=== PATIENT | female | born 1970 | race Caucasian/White ===

== ENCOUNTER 2017-05-03 05:11 | Inpatient (IN) | payer OTHER ==
[~2017-05-03] VITALS: Ht 167.6 cm; Wt 113.1 kg
[~2017-05-03 05:11] MED LIST: ASPI-183 PO; CELE200C PO; CHOL1TAB42 PO; CYMB60CA PO; FENO145T2 PO; FURO1TAB62 PO; HYZA50TA2 PO; LIPI20TA PO; LORA-474 PO; LYRI75CA PO; METF500T PO; OMEP20TA93 PO; OS-CTAB3 PO; SENN1TAB40 PO; VARE1 PO
[2017-05-03] MEDS ORDERED: ceFAZolin 2 GM PREMIX 50 ML IV SCH (05:45)
[2017-05-03] MEDS ORDERED: POVIDONE IODINE 5% (ANTISEPSIS KIT) 4 APPLICATIONS EACH NARE PRN (05:45)
[2017-05-03] MEDS ORDERED: ONDANSETRON HCL 4 MG/2 ML VIAL IV PUSH SCH (05:45)
[2017-05-03] MEDS ORDERED: metroNIDAZOLE 500 MG INJ 100 ML IV SCH (05:45)
[2017-05-03] MEDS ORDERED: METOPROLOL TARTRATE 25 MG TAB PO PRN (05:45)
[2017-05-03] MEDS ORDERED: LACTATED RINGER'S 1000 ML IV PRN (05:45)
[2017-05-03] MEDS ORDERED: APREPITANT 40 MG CAP PO SCH (05:45)
[2017-05-03] MEDS ORDERED: CHLORHEXIDINE GLUCONATE 2 % 1 PACK (2 CLOTHS) TOPICAL PRN (05:45)
[2017-05-03] MEDS ORDERED: SCOPOLAMINE 1.5 MG PATCH T-DERMAL SCH (05:45)
[2017-05-03] MEDS ORDERED: ACETAMINOPHEN 1000 MG/100 ML 0 ML IV ONE (06:35)
[2017-05-03] MEDS ORDERED: BUPIVACAINE/EPINEPHRINE 0.25% PF 30 ML VIAL ONE (06:54)
[2017-05-03] MEDS: ACETAMINOPHEN 1000 MG/100 ML 100 ML IV SCH ×3 (08:00→19:41)
[2017-05-03] MEDS ORDERED: METHYLENE BLUE 10 MG/ML VIAL OTHER ONE (09:46)
[2017-05-03] MEDS ORDERED: diphenhydrAMINE HCL 50 MG/ML VIAL IV PUSH PRN (10:30)
[2017-05-03] MEDS ORDERED: ENALAPRILAT 1.25 MG/ML VIAL IV PUSH PRN (10:30)
[2017-05-03] MEDS ORDERED: ACETAMINOPHEN 325MG/HYDROcodone 7.5MG/15ML UDC PO PRN ×2 (10:30)
[2017-05-03] MEDS ORDERED: Post-op Orders (for Pharmacy) MISC OTHER ONE (10:30)
[2017-05-03] MEDS ORDERED: NALOXONE HCL 0.4 MG/ML AMP IV PUSH PRN (10:30)
[2017-05-03] MEDS ORDERED: diphenhydrAMINE HCL ELIXIR 12.5 MG/5 ML CUP PO PRN (10:30)
[2017-05-03] MEDS ORDERED: SODIUM CHLORIDE 0.9% FLUSH 10 ML FLUSH IV FLUSH PRN (10:30)
[2017-05-03] MEDS ORDERED: DEXTROSE 50% IN WATER 50 ML VIAL(D50) IV PUSH PRN (10:30)
[2017-05-03] MEDS ORDERED: GLUCAGON 1 MG/ML VIAL OTHER PRN (10:30)
[2017-05-03] MEDS ORDERED: DO NOT ADM ANY ANTICOAGULANT DRUGS PRN (10:48)
[2017-05-03] MEDS ORDERED: *ONDANSETRON 4 MG VIAL PERIprocedural Use ONLY ONE (11:33)
[2017-05-03] MEDS: METOCLOPRAMIDE HCL 10 MG/2 ML VIAL IV PUSH SCH ×2 (11:35→18:08)
[2017-05-03] MEDS: 1/2 NS + KCL 20 MEQ INJ 1,000 ML IV SCH ×3 (11:40→19:41)
[2017-05-03] MEDS: RESP: ALBUTEROL 2.5 MG/3 ML NEB (SCH) INH ×2 (12:00→19:41)
[2017-05-03] MEDS ORDERED: SODIUM CHLORID 0.9% 500 ML INJ 500 ML IV ONE (12:00)
[2017-05-03] MEDS ORDERED: SODIUM CHLOR 0.9% 250 ML INJ 250 ML IV ONE (12:00)
[2017-05-03] MEDS ORDERED: DEXAMETHASONE SOD PHOS 4 MG/ML VIAL IV ONE (12:00)
[2017-05-03] MEDS: INSULIN NovoLIN REGULAR SUPPLEMENTAL SCALE SQ SCH ×4 (12:00→21:19)
[2017-05-03] MEDS ORDERED: MORPHINE SULFATE 30 MG/30 ML PCA IV SCH (12:00)
[2017-05-03] MEDS ORDERED: PHENYLEPH/NS 1000 MCG/10 ML SYR IV ONE (12:00)
[2017-05-03] MEDS ORDERED: PROPOFOL 200 MG/20 ML AMP IV ONE (12:00)
[2017-05-03] MEDS ORDERED: ePHEDrine/NS 25 MG/5 ML SYR IV ONE (12:00)
[2017-05-03] MEDS ORDERED: ROCURONIUM INJ 50 MG/5 ML SYRINGE IV PUSH ONE (12:00)
[2017-05-03] MEDS ORDERED: NEOSTIGMINE 3 MG/3 ML SYR IV ONE (12:00)
[2017-05-03] MEDS ORDERED: MIDAZOLAM HCL 2 MG/2 ML VIAL IV ONE (12:00)
[2017-05-03] MEDS ORDERED: LIDOCAINE HCL 1% PF 5 ML SYRINGE OTHER ONE (12:00)
[2017-05-03] MEDS ORDERED: ACETAMINOPHEN 1000 MG/100 ML 100 ML IV SCH (12:00)
[2017-05-03] MEDS: PCA - TOTAL MG MORPHINE DELIVERED PER SHIFT SCH ×2 (14:00→22:04)
[2017-05-03] MEDS: ONDANSETRON HCL 4 MG/2 ML VIAL IV PUSH PRN ×2 (14:41→21:45)
[2017-05-03] MEDS: ENOXAPARIN SODIUM 40 MG/0.4 ML SYRINGE SQ SCH (15:13)
[2017-05-03 16:00] VITALS: BP 128/65; PULSE 92; RESP 16; TEMP 97.2; O2SAT 92
[2017-05-03] MEDS: metroNIDAZOLE 500 MG INJ 100 ML IV SCH (17:15)
[2017-05-03 18:05] VITALS: O2SAT 96
[2017-05-03] MEDS: SODIUM CHLORIDE 0.9% FLUSH 10 ML FLUSH IV FLUSH SCH (19:10)
[2017-05-03 19:43] VITALS: O2SAT 94
[2017-05-03 20:00] VITALS: BP 110/57; PULSE 83; RESP 18; TEMP 97.1; O2SAT 92
[2017-05-04] VITALS (8 sets, daily range): BP systolic 98–137; BP diastolic 57–70; PULSE 53–70; RESP 18; TEMP 95.4–96.6; O2SAT 94–99
[2017-05-04] MEDS: RESP: ALBUTEROL 2.5 MG/3 ML NEB (SCH) INH ×4 (00:59→11:45)
[2017-05-04] MEDS: ACETAMINOPHEN 1000 MG/100 ML 100 ML IV SCH ×3 (01:17→09:36)
[2017-05-04] MEDS: METOCLOPRAMIDE HCL 10 MG/2 ML VIAL IV PUSH SCH ×2 (01:18→06:11)
[2017-05-04] MEDS: metroNIDAZOLE 500 MG INJ 100 ML IV SCH ×2 (01:18→09:38)
[2017-05-04] MEDS: 1/2 NS + KCL 20 MEQ INJ 1,000 ML IV SCH ×3 (03:46→12:00)
[2017-05-04 05:22] LABS: AUTOMATED NEUTROPHIL # 6.9 TH/MM3 (1.8-7.7); BASOPHIL % 0.2 % (0.0-2.0); EOSINOPHIL % 0.5 % (0.0-4.0); HEMATOCRIT 36.1 % (35.0-46.0); HEMO FLAGS DIFF FINAL; LYMPHOCYTE # 1.3 TH/MM3 (1.0-4.8); MEAN CELL VOLUME 90.6 FL (80.0-100.0); MEAN CORPUSCULAR HEMOGLOBIN 30.1 PG (27.0-34.0); MEAN CORPUSCULAR HGB CONC 33.2 % (32.0-36.0); MONO % 7.3 % (0.0-8.0); PLATELET COUNT 233 TH/MM3 (150-450); RED BLOOD COUNT 3.98 MIL/MM3 (4.00-5.30); RED CELL DISTRIBUTION WIDTH 13.3 % (11.6-17.2); WHITE BLOOD COUNT 8.9 TH/MM3 (4.0-11.0)
[2017-05-04 05:47] LABS: BICARBONATE 28.2 MEQ/L (21.0-32.0); POTASSIUM 3.8 MEQ/L (3.5-5.1)
[2017-05-04] MEDS: PCA - TOTAL MG MORPHINE DELIVERED PER SHIFT SCH (06:14)
--- NOTE | 2017-05-04 07:40 | HHI.PR ---
Subjective Subjective Notes Pt comfortable no cp no sob donna liquids Objective Vitals/I&O Vital Signs Date Time Temp Pulse Resp B/P (MAP) Pulse Ox O2 Delivery O2 Flow Rate FiO2 05/04/17 06:29 131/62 (85) Manual Cuff/Auscultation 05/04/17 04:27 96.0 53 18 95 05/03/17 18:05 21 05/03/17 14:00 Nasal Cannula 2.5 Labs Laboratory Tests Test 05/04/17 04:11 White Blood Count 8.9 Red Blood Count 3.98 Hemoglobin 12.0 Hematocrit 36.1 Mean Corpuscular Volume 90.6 Mean Corpuscular Hemoglobin 30.1 Mean Corpuscular Hemoglobin Concent 33.2 Red Cell Distribution Width 13.3 Platelet Count 233 Mean Platelet Volume 8.7 Neutrophils (%) (Auto) 78.0 Lymphocytes (%) (Auto) 14.0 Monocytes (%) (Auto) 7.3 Eosinophils (%) (Auto) 0.5 Basophils (%) (Auto) 0.2 Neutrophils # (Auto) 6.9 Lymphocytes # (Auto) 1.3 Monocytes # (Auto) 0.6 Eosinophils # (Auto) 0.0 Basophils # (Auto) 0.0 CBC Comment DIFF FINAL Differential Comment Blood Urea Nitrogen 17 Creatinine 0.94 Random Glucose 106 Calcium Level 9.1 Magnesium Level 2.0 Sodium Level 141 Potassium Level 3.8 Chloride Level 105 Carbon Dioxide Level 28.2 Anion Gap 8 Estimat Glomerular Filtration Rate 64 Abdomen: Post-op tenderness Extremities: Perfused Wound Wound : Wound Location: Abdomen Appearance: Clean & Dry A/P Assessment and Plan pt s/p [id number] doing well d/c home Jaylne Varghese MD May 04, 2017 07:40
[2017-05-04] MEDS: INSULIN NovoLIN REGULAR SUPPLEMENTAL SCALE SQ SCH ×2 (08:00→12:00)
[2017-05-04] MEDS ORDERED: DULoxetine HCl DR 60 MG CAP PO SCH (09:00)
[2017-05-04] MEDS ORDERED: PREGABALIN 75 MG CAP PO SCH (09:00)
[2017-05-04] MEDS ORDERED: PANTOPRAZOLE SOD 40 MG DELAYED RELEASE TAB PO SCH (09:00)
[2017-05-04] MEDS: SODIUM CHLORIDE 0.9% FLUSH 10 ML FLUSH IV FLUSH SCH (09:39)
[2017-05-04] MEDS ORDERED: METOCLOPRAMIDE HCL 10 MG/2 ML VIAL IV PUSH PRN (10:30)
[2017-05-04] MEDS: ENOXAPARIN SODIUM 40 MG/0.4 ML SYRINGE SQ SCH (14:47)
--- NOTE | 2017-05-08 13:15 | MP ---
cc: DENA VARGHESE DATE OF SURGERY: 05/03/2017 DATE OF : 1970 PREOPERATIVE DIAGNOSIS Morbid obesity with a BMI of 40 complicated by hypercholesterolemia, type 2 diabetes and essential hypertension. POSTOPERATIVE DIAGNOSIS Morbid obesity with a BMI of 40 complicated by hypercholesterolemia, type 2 diabetes and essential hypertension. PROCEDURE Laparoscopic Maggie-en-Y gastric bypass, 100 cm Maggie limb, antegastric, antecolic. SURGEON Dr. Dena Varghese. [employer] BUILDER SURGEON Dr. Jaron Pierre. Dr. Pierre's assistance was necessary for the procedure due to the complexity of the procedure. Dr. Pierre was utilized for manipulation and exposure during the procedure. Dr. Pierre assisted in the entire procedure. The psych assistant provided by [employer] was utilized at the back table. ANESTHESIA General endotracheal. ESTIMATED BLOOD LOSS Scant. FINDINGS Fatty liver. SPECIMENS None. COMPLICATIONS None. OPERATION The patient was brought to the operating room and placed on the operating table in supine position, bilateral sequential inflation device placed on lower extremities, general anesthesia instituted, antibiotics initiated. The abdomen was prepped and draped sterilely. A point 18 cm distal to the xiphoid in the midline anesthetized with 0.25% Marcaine with epinephrine. The skin incision was made, a 5 mm OptiView port placed under direct vision and pneumoperitoneum was created. Under direct vision a 5 mm left upper quadrant, 12 mm left upper quadrant, 12-mm right upper quadrant and 5 mm right upper quadrant ports were placed. Prior to placement of all ports, the skin and peritoneum were anesthetized with 0.25% Marcaine with epinephrine. The patient's omentum was lifted into the upper abdomen. It was split down the middle to create a path for the Maggie limb. The ligament of Treitz was identified, a point 40 cm distal identified. The small bowel was divided in this region using an Harrells Flex stapler vascular load reinforced with SeamGuard. The distal segment was brought up for a distance of 100 cm, enterotomy created in this region, enterotomy in the biliopancreatic limb and a [id number] stapled jejunojejunostomy created in the usual manner. The mesenteric defect at the jejunojejunostomy was closed with 2-0 Surgidac suture in a running manner. The patient was placed in reverse Trendelenburg position with the left side up. The Carly-Flex retractor was placed. The left lobe of the liver was retracted. The angle of His was taken down bluntly, a point 5 cm distal to the GE junction along the lesser curve identified, the lesser sac entered using blunt dissection. The stomach was partitioned horizontally using an Harrells-Flex stapler blue load, an additional firing taken directed towards the angle of His to completely divide the stomach. A gastrotomy created in the new stomach, enterotomy in the Maggie limb and gastrojejunostomy created, stomal opening of 2 cm. An 18-Belgian OG tube was placed across the anastomosis, the defect then closed in two layers of running 2-0 Vicryl. Prior to placement of the second layer, methylene blue instilled through the OG tube. There was no evidence of extravasation. Evicel was then placed over the gastrojejunostomy, jejunojejunostomy and all staple lines. The operative field inspected and hemostasis was present. The CO2 was released, all ports were removed. All skin incisions were closed with 4-0 Monocryl. The abdominal wall was cleaned and a sterile dressing placed. The patient was awakened and taken to the recovery room. MD [facility]/MILENA /12:05 PM /1:14 PM
== END 2017-05-04 15:56 | disposition home or self-care (01) | DRG 621 ==
LOC: HSDI 05:11 → EDSTATUS 08:30 → N07A 14:26
PROVIDERS: ADMIT Surgery; ATTEND Surgery
PROC: 0D164ZA Bypass Stomach to Jejunum, Percutaneous Endoscopic Approach (ICD-10-PCS; principal; 2017-05-03 08:20)
DX: E66.01 Morbid (severe) obesity due to excess calories (principal); I10 Essential (primary) hypertension; E11.9 Type 2 diabetes mellitus without complications; E78.00 Pure hypercholesterolemia, unspecified; Z68.41 Body mass index [BMI] 40.0-44.9, adult
CPT/HCPCS: 80048; 82948; 83735; 85025; 94150; 94640; 94664; J0131; J0690; J1100; J1650; J2250; J2270; J2370; J2405; J2710; J2765; J3010; J7040; J7050; J7120; J7613; J8501

== ENCOUNTER 2017-09-11 08:35 | Day surgery (SDC) | payer OTHER ==
[2017-09-11] VITALS (7 sets, daily range): BP systolic 91–120; BP diastolic 41–72; PULSE 46–71; RESP 16–20; TEMP 97.9; O2SAT 93–98
[~2017-09-11] VITALS: Ht 167.6 cm; Wt 86.4 kg
[~2017-09-11 08:35] MED LIST changes: -FURO1TAB62 PO; -METF500T PO
[2017-09-11] MEDS ORDERED: SODIUM CHLOR 0.9% 1000 ML IV SCH (09:15)
[2017-09-11] MEDS ORDERED: MIDAZOLAM HCL 2 MG/2 ML VIAL ONE (09:33)
--- NOTE | 2017-09-11 10:39 | PD.RAD ---
Post CT Procedure Prog Note Pre Procedure Diagnosis: (1) Abnormal LFTs (liver function tests) Post Procedure Diagnosis: (1) Abnormal LFTs (liver function tests) Procedure Date: Sep 11, 2017 Supervising Radiologist: Faheem Magana Anesthesia: Local, Analgesia, Conscious Sedation Plan of Activity Patient to Unit: ROPU Patient Condition: Good See PACS Report for procedural detail/treatment Biopsy Imaging Guidance: CT Side: Right Biopsy Procedure: Liver Specimen: Core Biopsy (18 gauge) Faheem Magana MD Sep 11, 2017 10:39
--- NOTE | 2017-09-11 10:52 | RADRPT ---
EXAM DATE/TIME: 09/11/2017 10:06 [facility] COMPARISON: No previous studies available for comparison. INDICATIONS : Abnormal liver function. SEDATION TIME: 20 minutes BIOPSY SITE: Right MEDICATION(S): 1.) 1.5 mg midazolam (Versed) IV 2.) 75 mcg fentanyl (Sublimaze) IV DEVICE(S): 1.) 18 gauge Temno core biopsy needle MEDICAL HISTORY : None. SURGICAL HISTORY : None. ENCOUNTER: Initial ACUITY: 1 day PAIN SCORE: 0/10 LOCATION: Right A total of one core specimen(s) were obtained and sent to the laboratory for pathologic evaluation. PROCEDURE: 1. CT guided liver biopsy. 2. Conscious sedation with continuous EKG and oximetry monitoring. 3. EKG and oximetry remained stable throughout the procedure. Prior to the procedure informed consent was obtained. Any appropriate prior imaging studies were rev iewed. Using automated exposure control and adjustment of the mA and/or kV according to patient size, radiat ion dose was kept as low as reasonably achievable to obtain optimal diagnostic quality images. DICOM format image data is available electronically for review and comparison. The site was prepped in a sterile fashion. Full sterile technique was used, including cap, mask, erika rile gloves and gown and a large sterile sheet. Hand hygiene and 2% chlorhexidine and/or betadine/al cohol prep was utilized per protocol for cutaneous antisepsis. The skin and subcutaneous tissues wer e infiltrated with local anesthetic solution. With CT guidance the previously identified target was localized. Biopsy was performed using the presc ribed needle as above. Adequate hemostasis was obtained with compression at the puncture site. Follow-up CT scan reveals no hemorrhage. The patient tolerated the procedure well and there were no complications. The patient was returned to the Radiology Outpatient Unit in stable condition. CONCLUSION: Uncomplicated CT guided biopsy. Single 18 gauge core from the right hepatic lobe. Faheem Magana MD on September 11, 2017 at 10:49 Board Certified Radiologist. This report was verified electronically.
== END 2017-09-11 14:35 | disposition home or self-care (01) ==
LOC: HRAD 08:35 → HRIP 08:39 → HRAD 14:35
PROVIDERS: ATTEND Internal Medicine Gastroenterology
DX: K74.69 Other cirrhosis of liver (principal); R94.5 Abnormal results of liver function studies
CPT/HCPCS: 47000; 77012; 88307; 88313; 99152; J2250; J3010; J7030